=== PATIENT | male | born 1990 | race Two or more races ===

== ENCOUNTER 2020-08-07 20:30 | Emergency (ER) | payer BC, OTHER ==
[~2020-08-07] VITALS: Ht 188 cm; Wt 98.0 kg
--- NOTE | 2020-08-07 20:49 | NUR ---
JEWELRY FINISHER: Pt admits to nausea with emesis today and increased stools but not diarrhea.
--- NOTE | 2020-08-07 21:13 | NUR ---
CC OF 8/10 RUQ PAIN AND NAUSEA THAT RADIATES TO RIGHT FLANK FOR ABOUT 8 HRS. PT WAS ADVISE TO TAKE MYLANTA AND STATES IT HELPED FOR A SHORT TIME BUT THEN CAME BACK. PT CONCERED ITS HIS GALLBLADDER. PT IN [facility] FIDGETING AROUND DUE TO PAIN. MOTHER AT BEDSIDE. STATES NO ISSUES WITH URINE OR BM.
[2020-08-07] MEDS ORDERED: MORPHINE SULFATE 4 MG/ML, 1ML ONE (21:18)
[2020-08-07] MEDS ORDERED: ONDANSETRON 2MG/ML, 2ML ONE (21:19)
[2020-08-07] MEDS ORDERED: ONDANSETRON 2MG/ML, 2ML IVPush ONE (21:30)
[2020-08-07] MEDS ORDERED: SODIUM CHLORIDE 0.9% 1,000ML IVBOLUS ONE (21:30)
[2020-08-07] MEDS ORDERED: MORPHINE SULFATE 4 MG/ML, 1ML IVPush PRN (21:30)
[2020-08-07] MEDS ORDERED: FAMOTIDINE 20 MG/2 ML IVPush ONE (21:30)
[2020-08-07] MEDS ORDERED: SODIUM CHLORIDE FLUSH 10ML SYR IVF ONE (21:30)
[2020-08-07] MEDS ORDERED: MAALOX/HYOSCYAMINE/LIDOCAINE 45 ML BTL PO ONE (21:30)
[2020-08-07 21:42] LABS: BASOPHILS % (AUTO) 0 % (0-1); EOSINOPHILS % (AUTO) 0 % (1-7); LYMPHOCYTES % (AUTO) 12 % (22-44); MEAN CORPUSCULAR HEMOGLOBIN 31.1 pg (27.5-34.5); MEAN CORPUSCULAR HGB CONC 33.5 g/dL (33.2-36.2); MEAN PLATELET VOLUME 8.3 fL (7.4-10.4); MONOCYTES % (AUTO) 7 % (2-9); NEUTROPHILS % (AUTO) 80 % (42-75); PLATELET COUNT 238 x10^3/uL (130-400); RED BLOOD COUNT 5.27 x10^6/uL (4.38-5.82); RED CELL DISTRIBUTION WIDTH 14.1 % (9.4-14.8)
[2020-08-07 21:46] LABS: MD NO
[2020-08-07] MEDS ORDERED: MAALOX/HYOSCYAMINE/LIDOCAINE 45 ML BTL ONE (21:46)
[2020-08-07] MEDS ORDERED: FAMOTIDINE 20 MG/2 ML ONE (21:46)
[2020-08-07 21:50] LABS: ALANINE AMINOTRANSFERASE 53 U/L (12-78); ALBUMIN 4.5 g/dL (3.4-5.0); ANION GAP 8 mmol/L (5-15); CALCIUM 9.8 mg/dL (8.5-10.1); CHLORIDE 107 mmol/L (98-107); CREATININE 1.12 mg/dL (0.7-1.3)
[2020-08-07 21:52] LABS: ALKALINE PHOSPHATASE 89 U/L (45-117); BILIRUBIN,TOTAL 1.9 mg/dL (0.2-1.0); TOTAL PROTEIN 8.4 g/dL (6.4-8.2)
--- NOTE | 2020-08-07 22:04 | NUR ---
TASK RN: ULTRASOUND COMPLETED AND PT MEDICATED PER EMAR. PT DENIES ANY OTHER NEEDS AT THIS TIME
[2020-08-07 22:37] LABS: MICROSCOPIC AUTO
[2020-08-07 23:00] VITALS: BP 112/59
== END 2020-08-07 23:18 | disposition home or self-care (01) ==
LOC: ED 23:00
DX: K29.00 Acute gastritis without bleeding (principal)
CPT/HCPCS: 36415; 76700; 80053; 81001; 83690; 85025; 96361; 96374; 96375; 99284; J2270; J2405; J7030

== ENCOUNTER → 2020-08-23 | Outpatient (CLI) | payer OTHER | END | disposition home or self-care (01) | LOC: RAD 09:25 | PROVIDERS: ATTEND Internal Medicine Gastroenterology | DX: R74.8 Abnormal levels of other serum enzymes (principal); R10.13 Epigastric pain | CPT/HCPCS: 74181 ==